=== PATIENT | female | born 1955 | race Two or more races ===

== ENCOUNTER 2022-12-19 06:53 | Day surgery (SDC) | payer MEDICARE, MEDICAID ==
[~2022-12-19] VITALS: Ht 160 cm; Wt 59.0 kg
[~2022-12-19 06:53] MED LIST: ALBUAER3 IN; ASPI-543 PO; ATOR20TA PO; CYCL-839 PO; DOCU-94 PO; DULO20CA PO; FERR-20 PO; FURO1TAB33 PO; GABA100C9 PO; HYDR-4798 PO; ISOS60TA24 PO; MAGN400T40 PO; METO25TA36 PO; MULT-1018 PO; OMEP-434 PO; POM; POTA1TAB4 PO; TRAZ50TA2 PO
[2022-12-19] MEDS ORDERED: LIDOCAINE 2%HCL (LOCAL ANESTH.) INJ 10ml MDV ONE ×2 (07:31→08:49)
[2022-12-19] MEDS ORDERED: IOHEXOL 350 MG/ML 100ML IJ ONE (07:34)
[2022-12-19] MEDS ORDERED: IODIXANOL 320MG/ML 100ML BTL IV ONE (07:34)
[2022-12-19] MEDS ORDERED: HEPARIN SODIUM (PORCINE) 5000 UNITS/ML 1ML VIAL ONE (07:58)
[2022-12-19] MEDS ORDERED: ANGIOMAX 250 MG VIAL IV ONE (07:58)
[2022-12-19] MEDS ORDERED: VERAPAMIL 2.5MG/ML INJ 2ML VIAL IV ONE (07:58)
[2022-12-19] MEDS ORDERED: SODIUM CHL 0.9% 0 ML ONE (07:59)
[2022-12-19] MEDS ORDERED: MIDAZOLAM HCL 2MG/2ML 2ml VIAL (1mg/ml) ONE (07:59)
[2022-12-19] MEDS ORDERED: fentaNYL CITRATE 100 MCG/2 ML VL ONE (07:59)
[2022-12-19 08:45] VITALS: BP 122/66
[2022-12-19 09:00] VITALS: BP 115/52
[2022-12-19 09:15] VITALS: BP 108/50
[2022-12-19 10:00] VITALS: BP 102/41
[2022-12-19 10:30] VITALS: BP 97/39
[2022-12-19 10:45] VITALS: BP 100/39
== END 2022-12-19 11:09 | disposition home or self-care (01) ==
LOC: CATH 06:53
PROVIDERS: ATTEND Internal Medicine Cardiovascular Disease
DX: R07.89 Other chest pain (principal); I10 Essential (primary) hypertension; E78.5 Hyperlipidemia, unspecified; G43.909 Migraine, unspecified, not intractable, without status migrainosus; M54.59 Other low back pain; G47.33 Obstructive sleep apnea (adult) (pediatric); M06.9 Rheumatoid arthritis, unspecified; Z79.899 Other long term (current) drug therapy; Z20.822 Contact with and (suspected) exposure to COVID-19
CPT/HCPCS: 93458; C1769; C1887; C1894; J1644; J2001; J2250; J3010; Q9967; U0003; 99152

== ENCOUNTER 2023-11-16 02:55 | Inpatient (IN) | payer MEDICARE, MEDICAID ==
[~2023-11-16] VITALS: Ht 160 cm; Wt 133.5 kg
[~2023-11-16 02:55] MED LIST changes: -FERR-20 PO; +FERR325T24 PO; +GABA-1308 PO; -GABA100C9 PO; +TRAZ-227 PO; -TRAZ50TA2 PO
[2023-11-16 03:26] LABS: Mean Corpuscular Hemoglobin 19.6 pg (28.0-32.0)
[2023-11-16 03:27] LABS: Hematocrit 29.4 % (36.0-46.0); Hemoglobin 9.2 g/dL (12.2-16.2); Mean Corpuscular Hgb Conc. 31.1 g/dL (32.0-36.0); Mean Corpuscular Volume 62.9 fL (80.0-100.0); Red Blood Cells 4.68 10^6/uL (4.0-5.20); Red Cell Distribution Width 16.9 % (11.8-14.3)
[2023-11-16 03:40] LABS: Albumin 4.2 g/dL (3.2-4.8); Alkaline Phosphatase 41 U/L (46-116); Anion Gap 6 (5-15); Aspartate Aminotransferase 16 U/L (13-40); BUN/Creatinine Ratio 14.3 (10.0-20.0); Bilirubin, Total 0.9 mg/dL (0.2-1.0); Blood Urea Nitrogen 10 mg/dL (9-23); Calcium 9.1 mg/dL (8.7-10.4); Carbon Dioxide 28 mmol/L (20-30); Chloride 105 mmol/L (98-107); Glucose 96 mg/dL (74-106); Magnesium 1.7 mg/dL (1.6-2.6); Sodium 139 mmol/L (136-145)
[2023-11-16 03:41] LABS: Total Protein 7.3 g/dL (5.7-8.2)
[2023-11-16 03:44] LABS: Alanine Aminotransferase < 9 U/L (7-40)
[2023-11-16 03:48] LABS: Band Neutrophils % (manual) 0; Basophils % (manual) 0 (0.0-2.0); Blast Cells 0; Metamyelocytes % 0; Myelocytes % 0; Promyelocytes % 0; Reactive Lymphocytes 0
[2023-11-16] MEDS ORDERED: ASPirin 325 MG TAB PO ONE (04:00)
[2023-11-16] MEDS ORDERED: NITROGLYCERIN 0.4 MG SL TAB SL ONE (04:00)
[2023-11-16 04:07] LABS: Eosinophils % (manual) 1 (0-7); Lymphocytes % (manual) 34 (10.0-50.0); Monocytes % (manual) 1 (0-12)
[2023-11-16 04:08] LABS: Platelet Estimate Adequate
[2023-11-16 04:09] LABS: Hypochromia Marked
[2023-11-16] MEDS ORDERED: traZODone HCL 50 MG TAB PO PRN (09:45)
[2023-11-16] MEDS ORDERED: NITROGLYCERIN 0.4 MG SL TAB SL PRN (09:45)
[2023-11-16] MEDS ORDERED: ONDANSETRON HCL 4 MG/2 ML VIAL IV PRN (09:45)
[2023-11-16] MEDS ORDERED: MORPHINE SULFATE 4 MG/ML SYR/VIAL IV PRN (09:45)
[2023-11-16] MEDS ORDERED: ASPirin 81 mg TAB PO SCH (10:00)
[2023-11-16] MEDS ORDERED: DOCUSATE SOD 100 MG CAP PO SCH (10:00)
[2023-11-16] MEDS: ASPirin-EC 81 mg tab PO SCH ×2 (10:00→11:48)
[2023-11-16] MEDS: FUROSEMIDE 20 MG TAB PO SCH (10:00)
[2023-11-16] MEDS: ISOSORBIDE MONONITRATE ER 60 MG TAB PO SCH ×2 (10:00→11:48)
[2023-11-16] MEDS: MULTIPLE VITAMIN TAB PO SCH ×2 (10:00→11:48)
[2023-11-16] MEDS ORDERED: ATORVASTATIN 20 MG TAB PO SCH ×3 (10:00→22:00)
[2023-11-16 10:17] LABS: Triglycerides 63 mg/dL (< 150)
[2023-11-16 10:18] LABS: LDL Cholesterol 105 mg/dL (< 100)
[2023-11-16 10:19] LABS: Cholesterol 158 mg/dL (< 200); HDL Cholesterol 51 mg/dL (40-59)
[2023-11-16 10:20] LABS: INR 1.08 (0.9-1.15); Prothrombin Time 11.3 sec (9.3-11.8)
[2023-11-16] MEDS: ACETAMINOPHEN 325 MG TAB PO PRN (10:44)
[2023-11-16] MEDS: METOPROLOL SUCCINATE XL 50 MG TAB PO SCH (11:23)
[2023-11-16] MEDS: GABAPENTIN 100 MG CAP PO SCH ×2 (14:27→22:34)
[2023-11-16] MEDS: DOCUSATE SOD 100 MG CAP PO SCH ×3 (14:27→22:36)
[2023-11-16 15:05] LABS: Urine Bacteria NONE SEEN /hpf (None Seen); Urine Blood TRACE /uL (Negative); Urine Clarity Clear (Clear); Urine Color Colorless (Yellow); Urine Protein, UAD Negative (Negative); Urine Specific Gravity 1.007 (1.001-1.035); Urine Urobilinogen Normal (Negative); Urine WBC <1 /hpf (0 - 5); Urine pH 6.5 (5.0-8.0)
[2023-11-16] MEDS ORDERED: IOHEXOL 350 MG/ML 100ML IJ ONE ×2 (15:12→17:43)
[2023-11-16 17:22] VITALS: PULSE 63; RESP 12; O2SAT 99
[2023-11-16] MEDS ORDERED: FERROUS SULFATE 325mg EC TAB PO SCH (17:30)
[2023-11-16 19:30] VITALS: PULSE 73; RESP 20; O2SAT 97
[2023-11-16 22:15] VITALS: BP 114/58; PULSE 80; RESP 18; TEMP 97.4; O2SAT 99
[2023-11-16 22:43] VITALS: O2SAT 99
[2023-11-16] MEDS ORDERED: HYDR-4798 PO (23:25)
[2023-11-17] VITALS (13 sets, daily range): BP systolic 94–110; BP diastolic 41–62; PULSE 60–71; RESP 16–20; TEMP 97.3–98.5; O2SAT 95–100
[2023-11-17] MEDS: GABAPENTIN 100 MG CAP PO SCH ×3 (05:31→21:18)
[2023-11-17 07:11] LABS: Eosinophils # (auto) 0.1 10 ^3/uL (0-0.8)
[2023-11-17 07:14] LABS: Basophils # (auto) 0.1 10 ^3/uL (0-0.2); Basophils % (auto) 0.9 % (0.0-2.0); Eosinophils % (auto) 0.9 % (0.0-7.0); Hematocrit 28.7 % (36.0-46.0); Lymphocytes # (auto) 3.3 10 ^3/uL (0.4-5.4); Lymphocytes % (auto) 54.8 % (10.0-50.0); Mean Corpuscular Hemoglobin 19.5 pg (28.0-32.0); Mean Corpuscular Hgb Conc. 31.3 g/dL (32.0-36.0); Mean Corpuscular Volume 62.5 fL (80.0-100.0); Monocytes # (auto) 0.3 10 ^3/uL (0-1.3); Neutrophils # (auto) 2.3 10 ^3/uL (1.6-8.6); Neutrophils % (auto) 38.4 % (37.0-80.0); Nucleated Red Blood Cells % 0.4 %
[2023-11-17 07:42] LABS: Alkaline Phosphatase 39 U/L (46-116); Anion Gap 9 (5-15); Aspartate Aminotransferase 17 U/L (13-40); Bilirubin, Total 1.1 mg/dL (0.2-1.0); Blood Urea Nitrogen 8 mg/dL (9-23); Calcium 9.4 mg/dL (8.5-10.1); Carbon Dioxide 26 mmol/L (20-30); Chloride 105 mmol/L (98-107); Glucose 79 mg/dL (74-106); Potassium 4.1 mmol/L (3.5-5.1); Sodium 140 mmol/L (136-145); Total Protein 6.9 g/dL (5.7-8.2)
[2023-11-17 07:47] LABS: Alanine Aminotransferase < 9 U/L (7-40)
[2023-11-17] MEDS: MULTIPLE VITAMIN TAB PO SCH (09:24)
[2023-11-17] MEDS: ISOSORBIDE MONONITRATE ER 60 MG TAB PO SCH (09:25)
[2023-11-17] MEDS: FUROSEMIDE 20 MG TAB PO SCH (09:26)
[2023-11-17] MEDS: METOPROLOL SUCCINATE XL 50 MG TAB PO SCH (09:27)
[2023-11-17] MEDS: ASPirin-EC 81 mg tab PO SCH (09:31)
[2023-11-17 11:29] LABS: Hypochromia Marked; Platelet Estimate Adequate
[2023-11-17 11:30] LABS: Ovalocytes MODERATE; Target Cell MODERATE
[2023-11-17] MEDS: DOCUSATE SOD 100 MG CAP PO SCH ×2 (13:24→21:16)
[2023-11-17 14:49] LABS: % Iron Saturation 33.6 % (15-50)
[2023-11-17] MEDS: ACETAMINOPHEN 325 MG TAB PO PRN (16:43)
[2023-11-17] MEDS ORDERED: ACETAMINOPHEN 325 MG TAB PO PRN (18:15)
[2023-11-17] MEDS: IPRATROPIUM BROM 0.5 MG/2.5ML INH SOL NEB SCH ×2 (18:27→22:14)
[2023-11-17] MEDS: ALBUTEROL SULF 2.5 MG/0.5ML(0.5%) NEB SOLN NEB SCH ×2 (18:27→22:14)
[2023-11-17] MEDS: ATORVASTATIN 20 MG TAB PO SCH (21:19)
[2023-11-18] VITALS (17 sets, daily range): BP systolic 96–118; BP diastolic 37–63; PULSE 59–84; RESP 16–20; TEMP 97.7–98.3; O2SAT 91–99
[2023-11-18] MEDS: ALBUTEROL SULF 2.5 MG/0.5ML(0.5%) NEB SOLN NEB SCH ×6 (02:00→22:03)
[2023-11-18] MEDS: IPRATROPIUM BROM 0.5 MG/2.5ML INH SOL NEB SCH ×6 (02:00→22:03)
[2023-11-18] MEDS ORDERED: SODIUM CHLORIDE 0.9% 500 ML IV ONE (04:30)
[2023-11-18] MEDS: DOCUSATE SOD 100 MG CAP PO SCH ×3 (05:01→21:31)
[2023-11-18] MEDS: GABAPENTIN 100 MG CAP PO SCH ×3 (05:02→21:31)
[2023-11-18] MEDS: ASPirin-EC 81 mg tab PO SCH (09:54)
[2023-11-18] MEDS: METOPROLOL SUCCINATE XL 50 MG TAB PO SCH (09:55)
[2023-11-18] MEDS: levoFLOXacin 500MG 100 ML IV SCH (09:55)
[2023-11-18 12:08] LABS: Chloride 106 mmol/L (98-107); Potassium 3.6 mmol/L (3.5-5.1); Sodium 140 mmol/L (136-145)
[2023-11-18 12:09] LABS: Anion Gap 7 (5-15); Carbon Dioxide 27 mmol/L (20-30)
[2023-11-18 12:10] LABS: Calcium 8.9 mg/dL (8.7-10.4)
[2023-11-18 12:14] LABS: Glucose 90 mg/dL (74-106)
[2023-11-18 12:15] LABS: BUN/Creatinine Ratio 12.3 (10.0-20.0); Blood Urea Nitrogen 7 mg/dL (9-23); Magnesium 1.7 mg/dL (1.6-2.6)
[2023-11-18 12:26] LABS: Basophils # (auto) 0 10 ^3/uL (0-0.2); Eosinophils # (auto) 0 10 ^3/uL (0-0.8); Eosinophils % (auto) 0.2 % (0.0-7.0); Hemoglobin 8.5 g/dL (12.2-16.2); Neutrophils # (auto) 4.5 10 ^3/uL (1.6-8.6)
[2023-11-18 12:29] LABS: Basophils % (auto) 0.4 % (0.0-2.0); Hematocrit 27.4 % (36.0-46.0); Lymphocytes # (auto) 3.3 10 ^3/uL (0.4-5.4); Lymphocytes % (auto) 39.8 % (10.0-50.0); Mean Corpuscular Hemoglobin 19.6 pg (28.0-32.0); Mean Corpuscular Volume 63.2 fL (80.0-100.0); Monocytes # (auto) 0.5 10 ^3/uL (0-1.3); Monocytes % (auto) 5.4 % (0.0-12.0); Neutrophils % (auto) 54.2 % (37.0-80.0); Nucleated Red Blood Cells % 0.3 %; Red Blood Cells 4.33 10^6/uL (4.0-5.20); Red Cell Distribution Width 17.3 % (11.8-14.3); White Blood Cell 8.4 10^3/uL (4.4-10.8)
[2023-11-18] MEDS ORDERED: LACTULOSE 20Gm/30ML SOLN PO ONE (13:00)
[2023-11-18 13:41] LABS: Platelet Estimate Adequate
[2023-11-18 13:42] LABS: Hypochromia Marked
[2023-11-18 13:43] LABS: Ovalocytes MODERATE
[2023-11-18 13:44] LABS: Target Cell FEW
[2023-11-18] MEDS: ATORVASTATIN 20 MG TAB PO SCH (21:31)
[2023-11-19] VITALS (19 sets, daily range): BP systolic 92–129; BP diastolic 38–58; PULSE 68–85; RESP 16–21; TEMP 97.1–98; O2SAT 90–99
[2023-11-19] MEDS: IPRATROPIUM BROM 0.5 MG/2.5ML INH SOL NEB SCH ×6 (02:17→22:09)
[2023-11-19] MEDS: ALBUTEROL SULF 2.5 MG/0.5ML(0.5%) NEB SOLN NEB SCH ×6 (02:17→22:09)
[2023-11-19] MEDS: DOCUSATE SOD 100 MG CAP PO SCH ×3 (05:51→21:46)
[2023-11-19] MEDS: GABAPENTIN 100 MG CAP PO SCH ×3 (05:51→21:46)
[2023-11-19 06:06] LABS: Basophils # (auto) 0 10 ^3/uL (0-0.2); Hemoglobin 8.8 g/dL (12.2-16.2); Lymphocytes # (auto) 3.2 10 ^3/uL (0.4-5.4); Monocytes # (auto) 0.3 10 ^3/uL (0-1.3); Nucleated Red Blood Cells % 0.3 %
[2023-11-19 06:08] LABS: Basophils % (auto) 0.3 % (0.0-2.0); Eosinophils # (auto) 0.1 10 ^3/uL (0-0.8); Eosinophils % (auto) 0.8 % (0.0-7.0); Hematocrit 27.9 % (36.0-46.0); Lymphocytes % (auto) 48.1 % (10.0-50.0); Mean Corpuscular Hemoglobin 20.1 pg (28.0-32.0); Mean Corpuscular Hgb Conc. 31.6 g/dL (32.0-36.0); Mean Corpuscular Volume 63.5 fL (80.0-100.0); Monocytes % (auto) 4.7 % (0.0-12.0); Neutrophils # (auto) 3.1 10 ^3/uL (1.6-8.6); Neutrophils % (auto) 46.1 % (37.0-80.0); Red Blood Cells 4.39 10^6/uL (4.0-5.20); Red Cell Distribution Width 16.7 % (11.8-14.3); White Blood Cell 6.6 10^3/uL (4.4-10.8)
[2023-11-19 06:15] LABS: Alkaline Phosphatase 39 U/L (46-116); Anion Gap 7 (5-15); Aspartate Aminotransferase 15 U/L (13-40); BUN/Creatinine Ratio 9.7 (10.0-20.0); Blood Urea Nitrogen 6 mg/dL (9-23); Calcium 9.2 mg/dL (8.7-10.4); Carbon Dioxide 27 mmol/L (20-30); Chloride 106 mmol/L (98-107); Glucose 82 mg/dL (74-106); Magnesium 1.8 mg/dL (1.6-2.6); Sodium 140 mmol/L (136-145)
[2023-11-19 06:16] LABS: Alanine Aminotransferase < 9 U/L (7-40); Bilirubin, Total 1.1 mg/dL (0.2-1.0); Total Protein 7.2 g/dL (5.7-8.2)
[2023-11-19] MEDS: levoFLOXacin 500MG 100 ML IV SCH (09:34)
[2023-11-19] MEDS: ASPirin-EC 81 mg tab PO SCH (09:38)
[2023-11-19] MEDS: METOPROLOL SUCCINATE XL 50 MG TAB PO SCH (09:39)
[2023-11-19] MEDS: ATORVASTATIN 20 MG TAB PO SCH (21:45)
[2023-11-20] VITALS (12 sets, daily range): BP systolic 116–131; BP diastolic 59–68; PULSE 72–88; RESP 17–18; TEMP 97.4–97.6; O2SAT 94–100
[2023-11-20] MEDS: ALBUTEROL SULF 2.5 MG/0.5ML(0.5%) NEB SOLN NEB SCH ×4 (02:40→14:46)
[2023-11-20] MEDS: IPRATROPIUM BROM 0.5 MG/2.5ML INH SOL NEB SCH ×4 (02:40→14:46)
[2023-11-20] MEDS: GABAPENTIN 100 MG CAP PO SCH ×2 (05:37→13:52)
[2023-11-20] MEDS: DOCUSATE SOD 100 MG CAP PO SCH ×2 (05:37→13:52)
[2023-11-20 06:03] LABS: Chloride 105 mmol/L (98-107); Potassium 3.9 mmol/L (3.5-5.1); Sodium 138 mmol/L (136-145)
[2023-11-20 06:04] LABS: Anion Gap 7 (5-15); Calcium 9.1 mg/dL (8.7-10.4); Carbon Dioxide 26 mmol/L (20-30)
[2023-11-20 06:09] LABS: Glucose 80 mg/dL (74-106)
[2023-11-20 06:10] LABS: Magnesium 1.8 mg/dL (1.6-2.6)
[2023-11-20 06:13] LABS: Hemoglobin 8.7 g/dL (12.2-16.2); Mean Corpuscular Hemoglobin 19.7 pg (28.0-32.0); Mean Corpuscular Hgb Conc. 31.3 g/dL (32.0-36.0); Red Blood Cells 4.45 10^6/uL (4.0-5.20); Red Cell Distribution Width 16.5 % (11.8-14.3); White Blood Cell 7.3 10^3/uL (4.4-10.8)
[2023-11-20 06:16] LABS: BUN/Creatinine Ratio 15.9 (10.0-20.0); Blood Urea Nitrogen 10 mg/dL (9-23)
[2023-11-20 06:22] LABS: Band Neutrophils % (manual) 0; Basophils % (manual) 0 (0.0-2.0); Blast Cells 0; Metamyelocytes % 0; Myelocytes % 0; Promyelocytes % 0; Reactive Lymphocytes 0
[2023-11-20 09:13] LABS: Eosinophils % (manual) 3 (0-7); Lymphocytes % (manual) 38 (10.0-50.0); Monocytes % (manual) 4 (0-12)
[2023-11-20 09:34] LABS: Platelet Estimate Adequate
[2023-11-20] MEDS: levoFLOXacin 500MG 100 ML IV SCH (09:45)
[2023-11-20] MEDS: METOPROLOL SUCCINATE XL 50 MG TAB PO SCH (09:46)
[2023-11-20] MEDS: ASPirin-EC 81 mg tab PO SCH (09:46)
[2023-11-20] MEDS ORDERED: LEVO750T8 PO (10:50)
== END 2023-11-20 16:31 | disposition home or self-care (01) | DRG 137 ==
LOC: ER 02:55 → TELE 09:40 → TELE-WESTW 22:09 → WEST WING 11-17 18:39 → TELE-WESTW 11-18 10:27 → WEST WING 11-19 16:27
PROVIDERS: ADMIT Internal Medicine; ATTEND Internal Medicine
DX: J15.69 Pneumonia due to other Gram-negative bacteria (principal); I27.20 Pulmonary hypertension, unspecified; G43.909 Migraine, unspecified, not intractable, without status migrainosus; I10 Essential (primary) hypertension; E78.5 Hyperlipidemia, unspecified; D50.9 Iron deficiency anemia, unspecified; J20.9 Acute bronchitis, unspecified; R91.1 Solitary pulmonary nodule; M06.9 Rheumatoid arthritis, unspecified; Z88.0 Allergy status to penicillin; G47.33 Obstructive sleep apnea (adult) (pediatric); Z79.899 Other long term (current) drug therapy; Z82.49 Family history of ischemic heart disease and other diseases of the circulatory system
CPT/HCPCS: 36415; 70450; 71045; 71275; 80048; 80053; 80061; 81001; 82270; 82728; 82962; 83010; 83036; 83540; 83550; 83615; 83735; 83880; 84443; 84484; 85007; 85025; 85027; 85045; 85379; 85610; 87070; 87205; 93005; 93306; 93970; 94640; 97163; G0378; J1956

== ENCOUNTER 2024-01-10 08:25 | Inpatient (IN) | payer MEDICARE, MEDICAID ==
[~2024-01-10] VITALS: Ht 160 cm; Wt 58.1 kg
[~2024-01-10 08:25] MED LIST changes: +LEVO750T8 PO
[2024-01-10 09:02] LABS: Eosinophils # (auto) 0 10 ^3/uL (0-0.8); Hemoglobin 10.1 g/dL (12.2-16.2); Red Cell Distribution Width 17.4 % (11.8-14.3); White Blood Cell 6.5 10^3/uL (4.4-10.8)
[2024-01-10 09:05] LABS: Basophils # (auto) 0.1 10 ^3/uL (0-0.2); Basophils % (auto) 0.8 % (0.0-2.0); Eosinophils % (auto) 0.5 % (0.0-7.0); Hematocrit 32.5 % (36.0-46.0); Lymphocytes # (auto) 1.7 10 ^3/uL (0.4-5.4); Lymphocytes % (auto) 25.5 % (10.0-50.0); Mean Corpuscular Hemoglobin 19.9 pg (28.0-32.0); Mean Corpuscular Volume 64.1 fL (80.0-100.0); Monocytes # (auto) 0.4 10 ^3/uL (0-1.3); Monocytes % (auto) 6.2 % (0.0-12.0); Neutrophils # (auto) 4.4 10 ^3/uL (1.6-8.6); Nucleated Red Blood Cells % 0.7 %; Red Blood Cells 5.08 10^6/uL (4.0-5.20)
[2024-01-10 09:20] LABS: Alanine Aminotransferase 13 U/L (7-40); Albumin 4.4 g/dL (3.2-4.8); Alkaline Phosphatase 39 U/L (46-116); Anion Gap 8 (5-15); Aspartate Aminotransferase 25 U/L (13-40); BUN/Creatinine Ratio 14.8 (10.0-20.0); Blood Urea Nitrogen 9 mg/dL (9-23); Calcium 9.8 mg/dL (8.5-10.1); Carbon Dioxide 28 mmol/L (20-30); Chloride 105 mmol/L (98-107); Glucose 81 mg/dL (74-106); Sodium 141 mmol/L (136-145)
[2024-01-10 09:21] LABS: Bilirubin, Total 1.4 mg/dL (0.2-1.0); Total Protein 7.3 g/dL (5.7-8.2)
[2024-01-10 09:41] LABS: INR 1.13 (0.9-1.15); Partial Thromboplastin Time 31.4 SEC (24.5-34.5); Prothrombin Time 11.8 sec (9.3-11.8)
[2024-01-10 09:42] LABS: Urine Bacteria NONE SEEN /hpf (None Seen); Urine Blood 1+ /uL (Negative); Urine Clarity Clear (Clear); Urine Color Yellow (Yellow); Urine Mucus FEW (None Seen); Urine Protein, UAD TRACE (Negative); Urine Specific Gravity 1.019 (1.001-1.035); Urine Urobilinogen Normal (Negative); Urine WBC 2 /hpf (0 - 5)
[2024-01-10] MEDS ORDERED: traZODone HCL 50 MG TAB PO PRN (13:30)
[2024-01-10] MEDS ORDERED: DOCUSATE SOD 100 MG CAP PO PRN (13:30)
[2024-01-10] MEDS ORDERED: ONDANSETRON HCL 4 MG/2 ML VIAL IV PRN (13:30)
[2024-01-10] MEDS ORDERED: ACETAMINOPHEN 325 MG TAB PO PRN (13:30)
[2024-01-10] MEDS ORDERED: MORPHINE SULFATE INJ 2 MG/ml SYRG IV PRN ×2 (13:30)
[2024-01-10] MEDS ORDERED: NITROGLYCERIN 0.4 MG SL TAB SL PRN (13:30)
[2024-01-10] MEDS ORDERED: HYDROcodone-ACET 5/325MG TAB PO PRN (13:30)
[2024-01-10 14:15] VITALS: BP 90/63; PULSE 72; RESP 16; O2SAT 99
[2024-01-10] MEDS ORDERED: SODIUM CHLORIDE 0.9% 1,000 ML IV ONE (15:00)
[2024-01-10] MEDS: GABAPENTIN 100 MG CAP PO SCH (20:08)
[2024-01-10] MEDS: ASPirin-EC 81 mg tab PO ONE (20:11)
[2024-01-11] MEDS ORDERED: OMEPRAZOLE MAGNESIUM 40 MG PO SCH (10:00)
[2024-01-11] MEDS ORDERED: ASPirin-EC 81 mg tab PO SCH (10:00)
[2024-01-11] MEDS ORDERED: FUROSEMIDE 20 MG TAB PO SCH (10:00)
[2024-01-11] MEDS ORDERED: DULOXETINE HCL 20 MG PO SCH (10:00)
[2024-01-11] MEDS ORDERED: POTASSIUM CHLORIDE 20 MEQ PO SCH (10:00)
[2024-01-11] MEDS ORDERED: ATORVASTATIN 20 MG TAB PO SCH (10:00)
[2024-01-11] MEDS ORDERED: PATIENTS OWN MEDICATION (Ferrous Sulfate 325 MG) PO SCH (10:00)
[2024-01-11] MEDS ORDERED: POTASSIUM CHL 20 Meq TABLET PO SCH (10:00)
[2024-01-11] MEDS ORDERED: PATIENTS OWN MEDICATION (Metoprolol Succinate (Toprol Xl) 1 TAB) PO SCH (10:00)
[2024-01-11] MEDS ORDERED: ISOSORBIDE MONONITRATE ER 60 MG TAB PO SCH (10:00)
[2024-01-11] MEDS ORDERED: FERROUS SULFATE 325mg EC TAB PO SCH (10:00)
[2024-01-11] MEDS ORDERED: PANTOPRAZOLE 40 MG TAB PO SCH (10:00)
[2024-01-11] MEDS ORDERED: MULTIPLE VITAMIN TAB PO SCH (10:00)
[2024-01-11] MEDS ORDERED: METOPROLOL SUCCINATE XL 50 MG TAB PO SCH (10:00)
== END 2024-01-11 01:49 | disposition left against medical advice (07) | DRG 203 ==
LOC: ER 08:25 → TELE 14:22
PROVIDERS: ADMIT Nurse Practitioner Family; ATTEND Family Medicine
DX: R07.89 Other chest pain (principal); I27.20 Pulmonary hypertension, unspecified; D50.9 Iron deficiency anemia, unspecified; I10 Essential (primary) hypertension; G43.909 Migraine, unspecified, not intractable, without status migrainosus; E78.5 Hyperlipidemia, unspecified; M54.50 Low back pain, unspecified; Z79.899 Other long term (current) drug therapy; Z87.891 Personal history of nicotine dependence; Z88.0 Allergy status to penicillin
CPT/HCPCS: 36415; 71045; 80053; 81001; 84484; 85025; 85610; 85730; 93005; G0378

== ENCOUNTER 2024-01-15 21:54 | Emergency (ER) | payer MEDICARE, MEDICAID ==
[~2024-01-15] VITALS: Ht 160 cm; Wt 5.0 kg
[2024-01-15 22:47] LABS: Alkaline Phosphatase 37 U/L (46-116); Calcium 9.2 mg/dL (8.5-10.1)
[2024-01-15 22:48] LABS: Anion Gap 5 (5-15); Aspartate Aminotransferase 20 U/L (13-40); BUN/Creatinine Ratio 19.3 (10.0-20.0); Blood Urea Nitrogen 11 mg/dL (9-23); Carbon Dioxide 30 mmol/L (20-30); Chloride 103 mmol/L (98-107); Glucose 85 mg/dL (74-106); Potassium 3.6 mmol/L (3.5-5.1); Sodium 138 mmol/L (136-145); Total Protein 6.9 g/dL (5.7-8.2)
[2024-01-15 22:56] LABS: Alanine Aminotransferase < 9 U/L (7-40)
[2024-01-16 00:27] VITALS: BP 131/43; PULSE 70; RESP 16; TEMP 98.2; O2SAT 94
== END 2024-01-16 00:27 | disposition home or self-care (01) ==
LOC: ER 21:54
DX: R07.89 Other chest pain (principal); E78.5 Hyperlipidemia, unspecified; I10 Essential (primary) hypertension; Z87.891 Personal history of nicotine dependence; Z88.0 Allergy status to penicillin
CPT/HCPCS: 36415; 71045; 80053; 83880; 84484; 93005